=== PATIENT | female | born 1985 | race Caucasian/White ===

== ENCOUNTER → 2020-07-10 13:43 | Outpatient (CLI) | payer OTHER, SELFPAY ==
[2020-07-11 05:21] LABS: Hepatitis B Core AB w/Reflex Negative (Negative); Hepatitis B Surf AB Quant 153.3 mIU/mL (Immunity>9.9)
[2020-07-11 17:30] LABS: HIV 1 & 2 Ab/Ag 4th Gen Combo NEGATIVE (NEGATIVE); Hep C Virus Ab w/Reflex Quant NEGATIVE s/c (NEGATIVE); Hepatitis B Surface Antigen NEGATIVE s/c (NEGATIVE)
== END ==
PROVIDERS: Referring Provider Physician Assistant Medical; Visit Provider Physician Assistant Medical
DX: Z77.21 Contact with and (suspected) exposure to potentially hazardous body fluids (principal)
CPT/HCPCS: 36415; 86704; 86706; 86803; 87340; 87389; 87522